=== PATIENT | male | born 1955 | race Caucasian/White ===

== ENCOUNTER 2016-11-18 08:06 | Day surgery (SDC) | payer BC ==
[2016-11-18] VITALS (7 sets, daily range): BP systolic 94–161; BP diastolic 66–95; PULSE 67–80; RESP 14–18; TEMP 98.1; O2SAT 95–98; Ht 193 cm; Wt 96.3 kg
[~2016-11-18] VITALS: Ht 193 cm; Wt 96.3 kg
[~2016-11-18 08:06] MED LIST: ASPI-715 PO; CYCL-208 PO; FISH1CAP29 PO; LIDOCAINE 1% (10mg/ml) 2ml SDV INJ ONE; LR 1,000 ML IV SCH; MELO-32 PO; MULT-806 PO; TAMS0.4C47 PO; [UNRECOGNIZED DRUG - CODE] PO
--- NOTE | 2016-11-18 08:43 | ANESPREOP ---
Anesthesia Record Date and Time DATE: 11/18/16 TIME: 08:42 Proposed Surgical Procedure COLONOSCOPY NPO since: Midnight Allergies: Coded Allergies: No Known Allergies (Unverified , 11/17/16) Ht/Wt/BMI Height: 6 ' 4.00 " Weight: 96.300 kg BMI: 25.8 kg/m2 Vital Signs Date Time Temp Pulse Resp B/P Pulse Ox O2 Delivery O2 Flow Rate FiO2 11/18/16 08:18 98.1 80 14 117/73 95 Room Air Medications Inpatient Medications Current Medications Medications (Trade) Dose Ordered Sig/Shan Start Time Stop Time Status Last Admin Dose Admin Lactated Ringer's (Lactated Ringers) 1,000 ml @ 50 mls/hr Q20H 11/18/16 07:00 11/18/16 08:38 50 MLS/HR Aspirin EC (Aspirin Ec) 81 Mg Tablet.dr, 81 MG PO DAILY, (Reported) Last Taken: on 11/16/16 Cyclobenzaprine Hcl (Cyclobenzaprine Hcl) 10 Mg Tablet, 10 MG PO TID PRN, (Reported) Last Taken: on 11/15/16 Fish Oil/[place]-3 Fatty Acids (Fish Oil 1,000 Mg Capsule) 1 Cap Capsule, 1 CAP PO DAILY, (Reported) Last Taken: on 11/15/16 Hydrocodone Bit/Acetaminophen (Lortab 5/500 Tablet ) 1 Tab Tablet, 1 TAB PO, (Reported) Last Taken: on 11/15/16 Meloxicam (Mobic) 15 Mg Tablet, 15 MG PO DAILY, ( Reported) Last Taken: on 11/15/16 Multivitamins (Multivitamin) 1 Tab Tablet, 1 TAB PO DAILY, (Reported) Last Taken: on 11/15/16 Tamsulosin HCl (Tamsulosin HCl) 0.4 Mg Cap.er.24h, 1 TAB PO DAILY, (Reported) Last Taken: on 11/15/16 Currently on Beta Rafael: No Medical/Surgical History Anesthesia PMH: Reports: Arthritis, Cancer (HX OF LYMPHOMA ), Hepatitis ( CHRONIC HEP C, NOT ACTIVE AT THIS TIME PER [facility] TEST), Denies: *Angina, *Diabetes , *Dyspnea, *Hypertension, *[place], Anesthesia Reactions (NO AIRWAY ISSUES ), Asthma , CHF, COPD, CVA/Stroke/TIA, Clotting Problems, Deep Vein Thrombosis, Glaucoma, Headaches, Hiatal Hernia, Malignant Hyperthermia, Pneumonia, Reflux, Renal Disease, Rheumatic Fever, Seizures, Sleep Apnea, Thyroid Disease, Tuberculosis Smoking Status: Current every day smoker Has pt. smoked today?: No Use Chewing Tobacco?: No Substance Use Type: does not use Alcohol Intake: a few times a week Past Surgical History Orthopedic Surgeries: Yes - LEFT THR AND NECK FUSION C3-4, RCR-L Abdominal Surgeries: Yes - APPY Genitourinary Surgeries: No Cardiac Surgeries: No Endocrine Surgeries: No Reproductive Surgeries: No Neurological Surgeries: No Ear Surgeries: No Nose Surgeries: No Throat Surgeries: No Other Surgeries: No Anesthesia Adverse Reactions: FOUND none Family Hx of Anesthesia Advers: none Hx of Motion Sickness: No Airway Assessment Mallampati Score: I TMD: 3 Fingerbreadths Neck Extension: Good Teeth: Partial Upper Dentures Overall Assessment: May Be Diff Mask Vent. ASA: 2 (shoemaker) Discussion Discussed risks/options/alternatives of anesthesia and questions answered. Patient consents. Nursing pain assessment noted. Attestation Statement Prior to the delivery of any anesthetic medication, I examined the patient, developed the plan, obtained the patient's consent and discussed the risk and benefits of the procedure with the patient/guardian. JOSEY SALEH November 18, 2016 08:43
[2016-11-18] MEDS ORDERED: PROPOFOL 500mg 50 ML IV ONE (09:39)
[2016-11-18] MEDS ORDERED: LIDOCAINE 1% (10mg/ml) 2ml SDV ONE (09:39)
--- NOTE | 2016-11-18 10:07 | ANESPO ---
Post-Op Note Date 11/18/16 Time: 10:06 Status Pt Participated in Evaluation: Pt participated in person Vital Signs Date Time Temp Pulse Resp B/P Pulse Ox O2 Delivery O2 Flow Rate FiO2 11/18/16 08:18 98.1 80 14 117/73 95 Room Air Respiratory Function: Airway patent, Regular respirations Cardiovascular Function: Regular pulse Mental Status: Alert/oriented Pain Level Intensity: 0 (0) Hydration: Taking po fluids Complications during Recovery None apparent Post-Anesthesia Notes pt. sana. well Follow-Up Instructions Instructions Per Surgeon Additional Information none AMADOR ORDONEZ CRNA November 18, 2016 10:07
--- NOTE | 2016-11-18 10:08 | ANESPREOP ---
Anesthesia Record Date and Time DATE: 11/18/16 TIME: 10:07 Pre-Op Diagnosis crcs Proposed Surgical Procedure COLONOSCOPY NPO since: Midnight Allergies: Coded Allergies: No Known Allergies (Unverified , 11/17/16) Ht/Wt/BMI Height: 6 ' 4.00 " Weight: 96.300 kg BMI: 25.8 kg/m2 Vital Signs Date Time Temp Pulse Resp B/P Pulse Ox O2 Delivery O2 Flow Rate FiO2 11/18/16 08:18 98.1 80 14 117/73 95 Room Air Medications Inpatient Medications Current Medications Medications (Trade) Dose Ordered Sig/Shan Start Time Stop Time Status Last Admin Dose Admin Lactated Ringer's (Lactated Ringers) 1,000 ml @ 50 mls/hr Q20H 11/18/16 07:00 11/18/16 08:38 50 MLS/HR Aspirin EC (Aspirin Ec) 81 Mg Tablet.dr, 81 MG PO DAILY, (Reported) Last Taken: on 11/16/16 Cyclobenzaprine Hcl (Cyclobenzaprine Hcl) 10 Mg Tablet, 10 MG PO TID PRN, (Reported) Last Taken: on 11/15/16 Fish Oil/[place]-3 Fatty Acids (Fish Oil 1,000 Mg Capsule) 1 Cap Capsule, 1 CAP PO DAILY, (Reported) Last Taken: on 11/15/16 Hydrocodone Bit/Acetaminophen (Lortab 5/500 Tablet ) 1 Tab Tablet, 1 TAB PO, (Reported) Last Taken: on 11/15/16 Meloxicam (Mobic) 15 Mg Tablet, 15 MG PO DAILY, ( Reported) Last Taken: on 11/15/16 Multivitamins (Multivitamin) 1 Tab Tablet, 1 TAB PO DAILY, (Reported) Last Taken: on 11/15/16 Tamsulosin HCl (Tamsulosin HCl) 0.4 Mg Cap.er.24h, 1 TAB PO DAILY, (Reported) Last Taken: on 11/15/16 Currently on Beta Rafael: No Medical/Surgical History Anesthesia PMH: Reports: Arthritis, Cancer (HX OF LYMPHOMA ), Hepatitis ( CHRONIC HEP C, NOT ACTIVE AT THIS TIME PER [facility] TEST), Denies: *Angina, *Diabetes , *Dyspnea, *Hypertension, *[place], Anesthesia Reactions (NO AIRWAY ISSUES ), Asthma , CHF, COPD, CVA/Stroke/TIA, Clotting Problems, Deep Vein Thrombosis, Glaucoma, Headaches, Hiatal Hernia, Malignant Hyperthermia, Pneumonia, Reflux, Renal Disease, Rheumatic Fever, Seizures, Sleep Apnea, Thyroid Disease, Tuberculosis Smoking Status: Current every day smoker Has pt. smoked today?: No Use Chewing Tobacco?: No Substance Use Type: does not use Substance last used: unknown Alcohol Intake: daily, a few times a week Last Drink: unknown Past Surgical History Orthopedic Surgeries: Yes - LEFT THR AND NECK FUSION C3-4, RCR-L Abdominal Surgeries: Yes - APPY Genitourinary Surgeries: No Cardiac Surgeries: No Endocrine Surgeries: No Reproductive Surgeries: No Neurological Surgeries: No Ear Surgeries: No Nose Surgeries: No Throat Surgeries: No Other Surgeries: No Anesthesia Adverse Reactions: FOUND none Family Hx of Anesthesia Advers: none Hx of Motion Sickness: No Pertinent Findings EKG Rhythm: Sinus Rhythm Physical Exam Respiratory: Bilat breath sounds equal, Lungs clear Cardiovascular: FOUND Regular rate, rhythm, FOUND No murmur Airway Assessment Mallampati Score: I TMD: 3 Fingerbreadths Neck Extension: Good Teeth: Partial Upper Dentures Overall Assessment: May Be Diff Mask Vent. ASA: 2 (shoemaker) Plan Anesthesia Plan: TIVA Discussion Discussed risks/options/alternatives of anesthesia and questions answered. Patient consents. Nursing pain assessment noted. Present: Spouse Attestation Statement Prior to the delivery of any anesthetic medication, I examined the patient, developed the plan, obtained the patient's consent and discussed the risk and benefits of the procedure with the patient/guardian. AMADOR ORDONEZ CRNA November 18, 2016 10:08
[2016-11-18] MEDS ORDERED: LIDOCAINE 1% (10mg/ml) 2ml SDV INJ ONE (14:30)
--- NOTE | 2016-11-18 16:02 | OPNOTEF ---
DATE OF PROCEDURE 11/18/2016 SURGEON Jarrett Guadarrama MD PREOPERATIVE DIAGNOSIS Colorectal cancer surveillance/personal history of lymphoma. POSTOPERATIVE DIAGNOSIS Colorectal cancer surveillance/personal history of lymphoma, colonic polyp x2 located at 75 and 45 cm from the rectal vault. PROCEDURE Colonoscopy with polypectomy hot forceps technique x2. ANESTHESIA TIVA BRIEF HISTORY/INDICATIONS Fausto is a 61-year-old male patient of mine who was seen for a colonoscopy consultation. He has had a recommendation by his oncologist that he have a colonoscopy every five years. Last colonoscopy was in 2011. FINDINGS Upon colonoscopy there was no evidence for angiodysplastic lesions, diverticula, or edelmira malignancies. The patient found to have two colonic polyps. The first polyp was located at 75 cm, the second at 45. Both polyps were flat, approximately 3-5 mm in diameter. Both were removed via hot forceps technique and sent to pathology. DESCRIPTION OF PROCEDURE After informed consent was obtained, the patient was brought to the endoscopy suite and placed on the table in the left lateral decubitus position. The patient subsequently underwent total intravenous anesthesia by the nurse hot mill roller per my request. Next, a digital rectal examination was performed; normal sphincter tone. No rectal masses were appreciated. An Olympus colonoscope was inserted in the anus and advanced with the lumen of the colon under direct visualization at all times until the cecum was ascertained. Triangulation of the tenia coli, ileocecal valve and appendiceal lumen were all visualized. The scope was then slowly withdrawn, again while maintaining visualization of the lumen at all times. As stated above, the entire colon was without evidence for angiodysplastic lesions, diverticula or edelmira malignancies. The patient was found to have two colonic polyps, as stated above. These polyps were located at 75 cm and 45 cm from the anal verge. Both were removed via hot forceps technique and sent to pathology. Photographs were obtained for documentation. The scope continued to be withdrawn until it was removed from the patient's anal verge. The patient tolerated the procedure without difficulty and was sent back to the preoperative area in stable condition. We will await the biopsy results to make further recommendations. I suspect Fausto will still get to go five years until his next colonoscopy. However, if these are both tubular adenomas with anything other than low grade dysplasia, we will possibly due a three-year colonoscopy. MANUEL
== END 2016-11-18 11:01 | disposition home or self-care (01) ==
LOC: NSC 08:06
PROVIDERS: ATTEND Family Medicine
DX: Z12.11 Encounter for screening for malignant neoplasm of colon (principal); K51.40 Inflammatory polyps of colon without complications; Z85.72 Personal history of non-Hodgkin lymphomas; G89.29 Other chronic pain; M54.5 Low back pain; Z79.1 Long term (current) use of non-steroidal anti-inflammatories (NSAID); Z79.82 Long term (current) use of aspirin; Z79.899 Other long term (current) drug therapy
CPT/HCPCS: 45384; J2704; J7120